=== PATIENT | male | born 1995 | race Caucasian/White ===

== ENCOUNTER → 2017-01-12 | Outpatient (CLI) | payer OTHER ==
[~2017-01-12] MED LIST: CLR10 PO; FLNIN
--- NOTE | 2017-01-12 09:04 | DIAGNOSTIC IMAGING REPORT ---
ABDOMEN COMPLETE (US) CLINICAL HISTORY: Generalized abdominal pain COMPARISON STUDY: No previous studies for comparison. FINDINGS: The liver appears sonographically normal. The gallbladder appears sonographically normal. The pancreas although not well delineated appears normal as visualized. The spleen was of normal size. The right kidney measured 10.2 cm in length. The left kidney measured 10.1 cm in length. No solid renal masses are visualized. There is no hydronephrosis. There is no ductal dilatation. The common bile duct measures 3 mm. There is no evidence of abdominal aortic aneurysm. The IVC appear normal. IMPRESSION: No abnormalities identified. Electronically signed by: Lele Benjamin M.D. 01/12/2017 9:03 AM Dictated Date/Time: 01/12/2017 9:01 AM
== END | disposition home or self-care (01) ==
LOC: C.ULTR 08:14
PROVIDERS: ATTEND Family Medicine
DX: R10.9 Unspecified abdominal pain (principal)